=== PATIENT | male | born 1995 | race Caucasian/White ===

== ENCOUNTER 2016-10-02 10:45 | Emergency (ER) | payer OTHER ==
[~2016-10-02] VITALS: Wt 68.5 kg
[2016-10-02] MEDS ORDERED: AZIT250T94 PO (11:37)
[2016-10-02] MEDS ORDERED: D-ME473S18 PO (11:37)
--- NOTE | 2016-10-02 11:42 | ERD ---
ER Documentation Chief Complaint Date/Time DATE: 10/02/16 TIME: 11:41 Chief Complaint cough HPI This 21-year-old male presents with a productive cough last week. Denies fevers , shortness breath, chest pain, vomiting, abdominal pain. ROS All systems reviewed and are negative except as per history of present illness. Medications Home Meds Active Scripts Dextromethorphan Hb-Promethazine Hcl (Promethazine DM Syrup) 473 Ml Syrup, 5 ML PO Q6H Y for COUGH, #4 OZ Prov:YOJANA MORENO MD 10/02/16 Azithromycin* (Zithromax*) 250 Mg Tablet, 250 MG PO .ZPACK DIRECTED, #6 TAB TAKE 500 MG (2 TABS) THE FIRST DAY THEN 250 MG (1 TAB) DAYS 2-5 Prov:YOJANA MORENO MD 10/02/16 Allergies Allergies: Coded Allergies: No Known Allergies (Verified Allergy, Mild, 12/13/09) PMhx/Soc History of Surgery: No Hx Neurological Disorder: No Hx Respiratory Disorders: No Hx Cardiac Disorders: No Hx Miscellaneous Medical Probl: No Hx Alcohol Use: No Hx Substance Use: No Hx Tobacco Use: No Physical Exam Vitals Vital Signs Date Time Temp Pulse Resp B/P Pulse Ox O2 Delivery O2 Flow Rate FiO2 10/02/16 10:50 97.2 88 20 124/82 97 Physical Exam Const: [] Alert, [id number]. Head: Atraumatic Eyes: Normal Conjunctiva ENT: Normal External Ears, Nose and Mouth. Neck: Full range of motion..~ No meningismus. Resp: Clear to auscultation bilaterally. No rales or wheezing appreciated. Cardio: Regular rate and rhythm, no murmurs Abd: Soft, non tender, non distended. Normal bowel sounds Skin: No petechiae or rashes Back: No midline or flank tenderness Ext: No cyanosis, or edema Neur: Awake and alert Psych: Normal Mood and Affect Procedures/MDM Patient presents with URI symptoms for last week and productive cough. He will be treated with Zithromax, promethazine given the duration. Signs and symptoms are not consistent with hypoxemia, respiratory distress, acute abdomen, no pneumonia, although patient should recheck for new or worsening symptoms. The patient was stable with no new complaints during the ER course. Clinically, there is no current evidence to suggest meningitis, sepsis, acute abdomen, pneumonia, acute coronary syndrome, pulmonary embolism, or any other emergent condition appearing to require further evaluation or hospitalization. The patient should certainly return for any new or worsening symptoms per the aftercare instructions. They should otherwise follow-up with her primary care doctor for reevaluation this week. Departure Diagnosis: Primary Impression: Bronchitis Condition: Stable Patient Instructions: Acute Bronchitis Additional Instructions: Recheck for new or worsening symptoms or primary care doctor. YOJANA MORENO MD Oct 02, 2016 11:42
== END 2016-10-02 12:06 | disposition home or self-care (01) ==
LOC: FTE 10:45
DX: J20.9 Acute bronchitis, unspecified (principal)
CPT/HCPCS: 99284

== ENCOUNTER 2017-08-10 21:42 | Emergency (ER) | payer OTHER ==
[~2017-08-10] VITALS: Ht 170.2 cm; Wt 71.1 kg
[~2017-08-10 21:42] MED LIST: AZIT250T94 PO; D-ME473S18 PO
[2017-08-10 21:45] VITALS: Ht 170.2 cm; Wt 71.1 kg
[2017-08-11] MEDS ORDERED: IBUP-1542 PO (01:59)
[2017-08-11] MEDS ORDERED: AMOX500C2 PO (01:59)
--- NOTE | 2017-08-11 02:29 | ERD ---
ER Documentation Chief Complaint Chief Complaint sore throat x 3 days HPI 22-year-old male presents to emergency department for complaints of sore throat for 3 days. Patient is complaining of sore throat burning pain, 6/10 scale, as was upon swallowing. Patient does not have any stridor or shortness of breath. Patient does not have any sick contacts. Patient had fever at home. Patient did not take any medications to help with symptoms. ROS All systems reviewed and are negative except as per history of present illness. Medications Home Meds Active Scripts Ibuprofen* (Motrin*) 600 Mg Tab, 600 MG PO Q6H Y for PAIN AND OR ELEVATED TEMP, #30 TAB Prov:ESSIE PETERSON NP 08/11/17 Amoxicillin* (Amoxicillin*) 500 Mg Cap, 500 MG PO TID for 10 Days, CAP Prov:ESSIE PETERSON NP 08/11/17 Dextromethorphan Hb-Promethazine Hcl (Promethazine DM Syrup) 473 Ml Syrup, 5 ML PO Q6H Y for COUGH, #4 OZ Prov:YOJANA MORENO MD 10/02/16 Azithromycin* (Zithromax*) 250 Mg Tablet, 250 MG PO .ZPACK DIRECTED, #6 TAB TAKE 500 MG (2 TABS) THE FIRST DAY THEN 250 MG (1 TAB) DAYS 2-5 Prov:YOJANA MORENO MD 10/02/16 Allergies Allergies: Coded Allergies: No Known Allergies (Verified Allergy, Mild, 12/13/09) PMhx/Soc Medical and Surgical Hx: pt denies Medical Hx, pt denies Surgical Hx History of Surgery: No Hx Neurological Disorder: No Hx Respiratory Disorders: No Hx Cardiac Disorders: No Hx Miscellaneous Medical Probl: No Hx Alcohol Use: No Hx Substance Use: No Hx Tobacco Use: No Smoking Status: Never smoker FmHx Family History: No coronary disease, No diabetes, No other Physical Exam Vitals Vital Signs Date Time Temp Pulse Resp B/P Pulse Ox O2 Delivery O2 Flow Rate FiO2 08/10/17 21:45 98.8 80 20 126/86 99 Physical Exam GENERAL: The patient is well developed and appropriate for usual state of health, in no apparent distress. HEENT: Atraumatic. Ears: Normal tympanic membrane, no erythema or bulging. No ear canal swelling. No ear discharge. Nose: normal nasal turbinates, no erythema or swelling. Normal nasal discharge. Throat: oropharynx symptoms with tonsillar exudates and tonsillar swelling noted. No lymphadenopathy. CHEST: Clear to auscultation bilaterally. There are no rales, wheezes or rhonchi. HEART: Regular rate and rhythm. No murmurs, clicks, rubs or gallops. No S3 or S4. ABDOMEN: Soft, nontender and nondistended. Good bowel sounds. No rebound or guarding. No gross peritonitis. No gross organomegaly or masses. No Arroyo sign or McBurney point tenderness. BACK: No midline or flank tenderness. EXTREMITIES: Equal pulses bilaterally. There is no peripheral clubbing, cyanosis or edema. No focal swelling or erythema. Full range of motion. Grossly neurovascularly intact. NEURO: Alert and oriented. Cranial nerves 2-12 intact. Motor strength in all 4 extremities with 5/5 strength. Sensation grossly intact. Normal speech and gait. SKIN: There is no apparent rash or petechia. The skin is warm and dry. HEMATOLOGIC AND LYMPHATIC: There is no evidence of excessive bruising or lymphedema. No gross cervical, axillary, or inguinal lymphadenopathy. Procedures/MDM Medical decision making: Patient symptoms is likely consistent with acute bacterial pharyngitis, most likely strep throat. Low suspicion for peritonsillar abscess, mononucleosis, no symptoms of epiglottitis, laryngitis. No oral airway obstruction noted. No symptoms of sepsis at this time. Patient appears well and is hemodynamically stable. Patient was given for amoxicillin, ibuprofen,is advised to follow-up with primary care doctor in 2-3 days for reevaluation of symptoms. Patient is advised to do salt water gargles. Patient is advised to return to emergency department for worsening symptoms. Disposition: Home. Stable. Disclaimer: Inadvertent spelling and grammatical errors are likely due to EHR/ dictation software use and do not reflect on the overall quality of patient care. Also, please note that the electronic time recorded on this note does not necessarily reflect the actual time of the patient encounter. Departure Diagnosis: Primary Impression: Acute bacterial pharyngitis Condition: Stable Patient Instructions: Pharyngitis, Strep (Presumed) ESSIE PETERSON NP Aug 11, 2017 02:29
== END 2017-08-11 02:17 | disposition home or self-care (01) ==
LOC: FTE 21:42
DX: J02.9 Acute pharyngitis, unspecified (principal)
CPT/HCPCS: 99283

== ENCOUNTER 2017-09-03 11:53 | Emergency (ER) | payer OTHER ==
[~2017-09-03] VITALS: Ht 172.7 cm; Wt 72.3 kg
[~2017-09-03 11:53] MED LIST changes: +AMOX500C2 PO; +IBUP-1542 PO
[2017-09-03 12:07] VITALS: Ht 172.7 cm; Wt 72.3 kg
--- NOTE | 2017-09-03 13:25 | ERD ---
ER Documentation Chief Complaint Chief Complaint COUGH AND WHEEZING X 2 DAYS HPI Otherwise healthy 22-year-old male presents with a chief complaint of cough 2- 3 days. Patient denies wheezing as stated in the nursing notes. Patient is worried about pneumonia but cannot get into his PCP. No sick contacts. Strep throat treated with antibiotics 2 weeks ago. Patient denies fever, chills, shortness of breath, difficulty breathing, change in voice, pharyngitis, squeezing chest pain. No recent travel. Vaccination status up-to-date. Patient has no other complaints and describes no other associated manifestations. ROS All systems reviewed and are negative except as per history of present illness. Medications Home Meds Active Scripts Benzonatate* (Tessalon Perle*) 100 Mg Capsule, 100 MG PO Q8H Y for COUGH for 3 Days, CAP Prov:VIVIENNE BOOKER PA-C 09/03/17 Ibuprofen* (Motrin*) 600 Mg Tab, 600 MG PO Q6H Y for PAIN AND OR ELEVATED TEMP, #30 TAB Prov:ESSIE PETERSON NP 08/11/17 Amoxicillin* (Amoxicillin*) 500 Mg Cap, 500 MG PO TID for 10 Days, CAP Prov:ESSIE PETERSON NP 08/11/17 Dextromethorphan Hb-Promethazine Hcl (Promethazine DM Syrup) 473 Ml Syrup, 5 ML PO Q6H Y for COUGH, #4 OZ Prov:YOJANA MORENO MD 10/02/16 Azithromycin* (Zithromax*) 250 Mg Tablet, 250 MG PO .ZPACK DIRECTED, #6 TAB TAKE 500 MG (2 TABS) THE FIRST DAY THEN 250 MG (1 TAB) DAYS 2-5 Prov:YOJANA MORENO MD 10/02/16 Allergies Allergies: Coded Allergies: No Known Allergies (Verified Allergy, Mild, 12/13/09) PMhx/Soc History of Surgery: No Hx Neurological Disorder: No Hx Respiratory Disorders: No Hx Cardiac Disorders: No Hx Miscellaneous Medical Probl: No Hx Alcohol Use: No Hx Substance Use: No Hx Tobacco Use: No Physical Exam Vitals Vital Signs Date Time Temp Pulse Resp B/P Pulse Ox O2 Delivery O2 Flow Rate FiO2 09/03/17 12:07 98.0 85 18 138/75 98 Physical Exam Const: Well-appearing 22-year-old male in NAD sitting on the bed with initial presentation Head: Atraumatic Eyes: PERRLA, EOMI, no nystagmus, normal conjunctivae. ENT: Normal External Ears, Nose and Mouth. Oral exam unremarkable. Oropharynx unremarkable. No postnasal drip visualized. Otoscope exam unremarkable. Neck: Full range of motion..~ No meningismus. Resp: Clear to auscultation bilaterally. Equal chest expansion bilaterally. No wheezes. Percussion unremarkable. Cardio: Regular rate and rhythm, no murmurs Skin: No petechiae or rashes Back: No midline or flank tenderness Ext: No swelling full range of motion with gross examination. Neur: Awake and alert Psych: Normal Mood and Affect Procedures/MDM 22-year-old male presents with a chief complaint of dry cough 2 days. No other symptoms. No sick contacts. No recent travel. X-ray obtained, read by my attending and given the following impression: Unremarkable. I have no suspicion for PE, pneumonia, other SBI, or endangerment of the airway. Most likely diagnosis is acute bronchitis versus other upper respiratory viral infection. Patient will be given Tessalon Perles for symptomatic treatment. Have recommended follow-up with PCP in the next 1-3 days as already scheduled. I have spoke with the patient regarding their condition and future management. They have verbally responded that they understand their status and treatment plan. The patients vitals are stable, and their current condition is appropriate for discharge. The patient will be given discharge instructions with return precautions. Discharge medications: Tessalon Perles 3 days Departure Diagnosis: Primary Impression: Acute bronchitis Bronchitis organism: unspecified organism Qualified Code: J20.9 - Acute bronchitis, unspecified organism Condition: Stable Additional Instructions: Follow up with your PCP within the next 1-3 days for a more thorough evaluation and a possible referral to a specialist. Return the the emergency department immediately if symptoms worsen or change. If you have any questions regarding medications, ask your pharmacist or us before you leave. If any adverse reactions occur while taking your medications, discontinue the treatment and return to the emergency department immediately. Take your medications as directed, and complete the entire course of treatment. VIVIENNE BOOKER PA-C Sep 03, 2017 13:25
[2017-09-03] MEDS ORDERED: BENZ100C70 PO (13:45)
--- NOTE | 2017-09-03 16:55 | RADRPT ---
PROCEDURE: Chest x-ray CLINICAL INDICATION: Cough TECHNIQUE: Chest single view COMPARISON: None FINDINGS: The heart is normal in size. The pulmonary vessels are normal in caliber. There is slightly increas ed reticular markings in both lower lobes which may represent mild interstitial pneumonia. No conflu ent consolidation is seen. The costophrenic angles are sharp. The visualized bony thorax is unrema rkable. IMPRESSION: Slightly increased reticular markings in both lower lobes may represent mild interstitial pneumonia RPTAT: HH .Jaylan Laird MD, MD Date Time Electronically viewed and signed by .Jaylan Laird MD, MD on 09/03/2017 13:46 .W/
== END 2017-09-03 13:51 | disposition home or self-care (01) ==
LOC: FTE 11:53
DX: J20.9 Acute bronchitis, unspecified (principal)
CPT/HCPCS: 71010; Z7502

== ENCOUNTER 2017-09-09 08:27 | Emergency (ER) | payer OTHER ==
[~2017-09-09] VITALS: Ht 157.5 cm; Wt 70.0 kg
[~2017-09-09 08:27] MED LIST changes: +BENZ100C70 PO
[2017-09-09 08:28] VITALS: Ht 157.5 cm; Wt 70.0 kg
[2017-09-09] MEDS ORDERED: AZIT250T94 PO (08:55)
[2017-09-09] MEDS ORDERED: CETI10CA PO (08:56)
[2017-09-09] MEDS ORDERED: IBUP-1542 PO (08:56)
--- NOTE | 2017-09-09 09:19 | ERD ---
ER Documentation Chief Complaint Chief Complaint COUGH,SORE THROAT HPI Patient is a 22-year-old male who presents ED for concerns of a cough and sore throat. Patient states he has had a dry cough for about 2 weeks now. Patient states he was seen here approximately 1 week ago and given Tessalon Perles. Patient states he has taken all the Tessalon Perles without any relief of symptoms. Patient reports throat pain for last week. Patient denies any drooling, trismus or hypertension of his neck. Patient denies any fevers, chills, nausea, vomiting, chest pain, shortness of breath, abdominal pain or LOC. Patient does report right ear pain. Patient denies any drainage or bleeding. Patient does report numerous sick contacts at home including his sisters. Patient did not receive the flu vaccine this year. ROS All systems reviewed and are negative except as per history of present illness. Medications Home Meds Active Scripts Cetirizine Hcl* (Zyrtec*) 10 Mg Capsule, 10 MG PO DAILY, #10 TAB.CHEW Prov:SUN VILLAGOMEZ PA-C 09/09/17 Ibuprofen* (Motrin*) 600 Mg Tab, 600 MG PO Q6, #20 TAB Prov:SUN VILLAGOMEZ PA-C 09/09/17 Azithromycin* (Zithromax*) 250 Mg Tablet, 250 MG PO .DaciaPACK DIRECTED, #6 TAB TAKE 500 MG (2 TABS) THE FIRST DAY THEN 250 MG (1 TAB) DAYS 2-5 Prov:SUN VILLAGOMEZ PA-C 09/09/17 Benzonatate* (Tessalon Perle*) 100 Mg Capsule, 100 MG PO Q8H Y for COUGH for 3 Days, CAP Prov:VIVIENNE BOOKER PA-C 09/03/17 Ibuprofen* (Motrin*) 600 Mg Tab, 600 MG PO Q6H Y for PAIN AND OR ELEVATED TEMP, #30 TAB Prov:ESSIE PETERSON NP 08/11/17 Amoxicillin* (Amoxicillin*) 500 Mg Cap, 500 MG PO TID for 10 Days, CAP Prov:ESSIE PETERSON NP 08/11/17 Dextromethorphan Hb-Promethazine Hcl (Promethazine DM Syrup) 473 Ml Syrup, 5 ML PO Q6H Y for COUGH, #4 OZ Prov:YOJANA MORENO MD 10/02/16 Azithromycin* (Zithromax*) 250 Mg Tablet, 250 MG PO .ZPACK DIRECTED, #6 TAB TAKE 500 MG (2 TABS) THE FIRST DAY THEN 250 MG (1 TAB) DAYS 2-5 Prov:YOAJNA MORENO MD 10/02/16 Allergies Allergies: Coded Allergies: No Known Allergies (Verified Allergy, Mild, 12/13/09) PMhx/Soc History of Surgery: No Anesthesia Reaction: No Hx Neurological Disorder: No Hx Respiratory Disorders: No Hx Cardiac Disorders: No Hx Psychiatric Problems: No Hx Miscellaneous Medical Probl: No Hx Alcohol Use: Yes (occassionally) Hx Substance Use: No Hx Tobacco Use: No Smoking Status: Never smoker Physical Exam Vitals Vital Signs Date Time Temp Pulse Resp B/P Pulse Ox O2 Delivery O2 Flow Rate FiO2 09/09/17 08:28 98.4 83 18 133/87 99 Physical Exam GENERAL: Well-developed, well-nourished male. Appears in no acute distress. Speaking in full sentences. HEAD: Normocephalic, atraumatic. EYES: Pupils are equally reactive bilaterally. EOMs grossly intact. No conjunctival erythema. ENT: External ear without any masses or tenderness. Auditory canals clear bilaterally. TM visualized bilaterally, non-erythematous, non-bulging. Nasal septum midline. Nasal mucosa pink with no discharge. Turbinates normal. Oropharynx is erythematous with plus bilateral tonsillar swelling. No exudates were noted. No kissing tonsils. No unilateral tonsillar swelling. No trismus. No drooling. Sinuses non-tender to palpation. NECK: Supple. No meningismus. Normal range of motion of the neck. No cervical lymphadenopathy. LUNG: Clear to auscultation bilaterally. No rhonchi, wheezing, rales or coarse breath sounds. No abdominal retractions, no nasal flaring, no tripoding. HEART: Regular rate and rhythm. No murmurs, rubs or gallops. EXTREMITIES: Equal pulses bilaterally. No peripheral clubbing, cyanosis or edema. No unilateral leg swelling. NEUROLOGIC: Alert and oriented. Moving all four extremities without any difficulty. Normal speech. Steady gait. SKIN: Normal color. Warm and dry. No rashes or lesions. Procedures/MDM MEDICAL DECISION MAKING: This is a 22-year-old male who presents ED for concerns of a dry cough 2 weeks and throat pain 1 week. Patient denied any fevers. Patient does have sick contacts at home. Vital signs were reviewed. Patient was afebrile. Patient was not hypoxic. Low suspicion for strep pharyngitis at this time given that patient's Centor score is 1. Given these findings, the patient's presentation is most consistent with acute bronchitis and viral pharyngitis.. Low suspicion for pneumonia, meningitis, sinusitis, otitis externa, acute otitis media, epiglottitis or peritonsillar abscess. Patient was nontoxic, [id number] prior to discharge. PRESCRIPTIONS: Ibuprofen, Z-Ryland, Zyrtec DISCHARGE: At this time, patient is stable for discharge and outpatient management. Supportive therapies such as OTC throat lozenges, salt water gurgles, popsicles and jello discussed. I have instructed the patient to follow-up with his/her primary care physician in 1-2 days. I have instructed the patient to promptly return to the ER for any new or worsening symptoms including increased pain, swelling, fever, nausea, vomiting, weakness or difficulty breathing. The patient and/or family expressed understanding of and agreement with this plan. All questions were answered. Home care instructions were provided. Disclaimer: Inadvertent spelling and grammatical errors are likely due to EHR/ dictation software use and do not reflect on the overall quality of patient care. Also, please note that the electronic time recorded on this note does not necessarily reflect the actual time of the patient encounter. Departure Diagnosis: Primary Impression: Acute bronchitis Bronchitis organism: unspecified organism Qualified Code: J20.9 - Acute bronchitis, unspecified organism Condition: Stable Patient Instructions: Acute Bronchitis Referrals: NNAMDI RAMIREZ MD- (PCP) Additional Instructions: Call your primary care doctor TOMORROW for an appointment during the next 1-2 days.See the doctor sooner or return here if your condition worsens before your appointment time. SUN VILLAGOMEZ PA-C Sep 09, 2017 09:15
== END 2017-09-09 09:03 | disposition home or self-care (01) ==
LOC: FTE 08:27
DX: J20.9 Acute bronchitis, unspecified (principal)
CPT/HCPCS: 99283